=== PATIENT | male | born 2005 | race Caucasian/White ===

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

== ENCOUNTER → 2024-06-14 09:29 | Outpatient (REF) | payer BC, OTHER, SELFPAY ==
[2024-06-14 11:02] LABS: HDL Cholesterol 39 mg/dl; LDL Cholesterol, Calculated 106 mg/dl; Total Cholesterol 184 mg/dl (50-199); Triglyceride 197 mg/dl (10-149); Very Low Density Lipoprotein 39 mg/dl (0-30)
== END ==
LOC: REG 09:29
PROVIDERS: FAMILY PHYSICIAN Family Medicine
DX: R56.9 Unspecified convulsions (principal); Z79.899 Other long term (current) drug therapy
CPT/HCPCS: 36415; 80061; 83036